=== PATIENT | female | born 1985 | race Two or more races ===

== ENCOUNTER 2023-08-30 15:30 | Inpatient (IN) | payer BC ==
[~2023-08-30] VITALS: Ht 165.1 cm; Wt 82.1 kg
[2023-08-30] MEDS ORDERED: PANTOPRAZOLE 40 MG VIAL IV ONE (16:30)
[2023-08-30] MEDS ORDERED: MORPHINE SULFATE INJ 2 MG/ML DISP.SYRIN IV ONE (16:30)
[2023-08-30] MEDS ORDERED: IV NS 0.9% 1,000 ML BAG IV ONE ×4 (16:30→22:00)
[2023-08-30] MEDS ORDERED: ONDANSETRON HCL/PF 4 MG/2 ML VIAL IVP ONE (16:30)
[2023-08-30] MEDS ORDERED: ONDANSETRON HCL/PF 4 MG/2 ML VIAL ONE (16:52)
[2023-08-30] MEDS ORDERED: MORPHINE SULFATE INJ 4 MG/ML DISP.SYRIN ONE (16:52)
[2023-08-30] MEDS ORDERED: PANTOPRAZOLE 40 MG VIAL ONE (16:54)
[2023-08-30 18:35] LABS: ALANINE AMINOTRANSFERASE < 6 U/L (12-78); ALBUMIN 2.2 g/dL (3.4-5.0); ALKALINE PHOSPHATASE 115 U/L (46-116); ASPARTATE AMINOTRANSFERASE 8 U/L (15-37); BILIRUBIN,DIRECT 0.1 mg/dL (0.0-0.2); BILIRUBIN,TOTAL 1.6 mg/dL (0.2-1.0); CHLORIDE 81 mmol/L (98-107); CREATININE 1.3 mg/dL (0.6-1.3); POTASSIUM 5.7 mmol/L (3.5-5.1); TOTAL PROTEIN, SERUM 7.9 g/dL (6.4-8.2); UREA NITROGEN, BLOOD 9 mg/dL (7-18)
[2023-08-30 18:45] LABS: PREGNANCY TEST URINE QUAL NEGATIVE (NEGATIVE)
[2023-08-30 18:47] LABS: BILIRUBIN,URINE 2+ (NEGATIVE); BLOOD, URINE 2+ Ery/uL (NEGATIVE); COLOR,URINE YELLOW (YELLOW); KETONES,URINE 3+ mg/dL (NEGATIVE); LEUKOCYTE ESTERASE ,URINE NEGATIVE (NEGATIVE); NITRITE, URINE NEGATIVE (NEGATIVE); PH,URINE 5.5 (5.0-8.0); PROTEIN,URINE 2+ mg/dl (NEGATIVE); UGLUCOSE 3+ mg/dL (NEGATIVE); UROBILINOGEN,URINE 0.2 EU/dL (0.2)
[2023-08-30 19:01] LABS: BASOPHILS # (AUTO) 0.1 K/uL (0.0-0.2); BASOPHILS % (AUTO) 0.5 % (0.0-2.0); EOSINOPHILS % (AUTO) 0.1 % (0.0-6.0); HEMATOCRIT 39 % (33-45); HEMOGLOBIN 13.8 g/dL (11.5-14.8); LYMPHOCYTES # (AUTO) 3.2 K/uL (0.8-4.8); LYMPHOCYTES % (AUTO) 23.5 % (20.0-44.0); MEAN CORPUSCULAR HEMOGLOBIN 34 PG (26.0-33.0); MEAN CORPUSCULAR HGB CONC 35 g/dl (31.0-36.0); MEAN CORPUSCULAR VOLUME 97 fL (82-100); MONOCYTES # (AUTO) 0.9 K/uL (0.1-1.30); MONOCYTES % (AUTO) 6.6 % (2.0-12.0); NEUTROPHILS # (AUTO) 9.3 K/uL (1.8-8.9); NEUTROPHILS % (AUTO) 69.3 % (43.0-81.0); PLATELET COUNT (AUTO) 421 K/uL (150-450); RED BLOOD CELL COUNT(AUTO) 4.04 MIL/uL (4.0-5.2); RED CELL DISTRIBUTION WIDTH 14.6 % (11.5-15.0); WHITE BLOOD COUNT (AUTO) 13.5 K/uL (4.3-11.0)
[2023-08-30 19:06] LABS: ADD URINE CULTURE NO; BACTERIA,URINE Few /HPF (None Seen); COARSE GRANULAR CASTS,URINE Moderate /LPF (None Seen); RBC,URINE 21-50 /HPF (0-2); SQUAMOUS EPITHELIAL CELL,UR Few /HPF (None Seen); WBC,URINE 0-2 /HPF (0-3)
[2023-08-30 19:07] LABS: APPEARANCE,URINE CLEAR (CLEAR)
[2023-08-30] MEDS ORDERED: HYDROMORPHONE 1 MG/1 ML DISP.SYRIN ONE (20:29)
[2023-08-30] MEDS ORDERED: HYDROMORPHONE 1 MG/1 ML DISP.SYRIN IV ONE (20:30)
[2023-08-30 21:29] LABS: CARBON DIOXIDE 7 mmol/L (21-32); SODIUM SERUM 110 mmol/L (136-145)
[2023-08-30 21:30] LABS: CALCIUM, SERUM 4.1 mg/dL (8.5-10.1); GLUCOSE 857 mg/dL (74-106)
[2023-08-30] MEDS ORDERED: INSULIN REGULAR, HUMAN 100 UNIT/ML 10 ML VIAL ONE (21:43)
[2023-08-30 21:44] LABS: LIPASE 2268 U/L (16-77)
[2023-08-30] MEDS ORDERED: INSULIN REGULAR, HUMAN 100 UNIT/ML 10 ML VIAL IV ONE (22:00)
[2023-08-30 22:51] LABS: CREATININE 1.2 mg/dL (0.6-1.3); POTASSIUM 5.5 mmol/L (3.5-5.1)
[2023-08-30 23:52] LABS: ABG BASE EXCESS -25.6 mmol/L; ABG OXYGEN SATURATION 83.6 % (92.0-98.5); ABG PCO2 19.3 mmHg (35.0-45.0); ABG PH 6.983 (7.350-7.450); ABG PO2 56.9 mmHg (75.0-100.0); COHb 0.2 % (0.5-1.5); MetHb 0.5 % (0.0-1.5); SITE, ABG Left Radial; VENT MODE, BG ROOM AIR
[2023-08-31] VITALS (27 sets, daily range): BP systolic 94–156; BP diastolic 82–125; TEMP 97.8–100.9; O2SAT 94–100
[2023-08-31] MEDS ORDERED: INSULIN REGULAR, HUMAN 100 UNIT in IV NS 0.9% 99 ML IV PRN ×2
[2023-08-31] MEDS ORDERED: PIPERACILLIN /TAZOBACTAM 3.375 G in IV D5W 50 ML IV ONE ×2 (00:30→06:30)
[2023-08-31] MEDS ORDERED: Sodium Bicarbonate 50 MEQ in IV NS 0.9% 1,000 ML IV PRN (01:00)
[2023-08-31] MEDS ORDERED: SODIUM BICARBONATE SYR 100 MEQ in IV D5/0.45 NACL 1,000 ML IV PRN (01:00)
[2023-08-31] MEDS: Calcium Gluconate 1GM/10ML 9.3 MEQ in IV D5W 250 ML IV SCH ×5 (01:00→05:34)
[2023-08-31] MEDS ORDERED: PIPERACI/TAZO 3.375GM/D5W 50ML PB IV ONE ×2 (01:09→03:30)
[2023-08-31] MEDS ORDERED: HYDROMORPHONE 1 MG/1 ML DISP.SYRIN ONE (01:15)
[2023-08-31] MEDS: HYDROMORPHONE 1 MG/1 ML DISP.SYRIN IV PRN ×4 (01:24→23:49)
[2023-08-31] MEDS ORDERED: SODIUM BICARBONATE SYR 50 MEQ/50 ML DISP.SYRIN ONE (01:41)
[2023-08-31] MEDS ORDERED: Calcium Gluconate 0.465 MEQ/ML VIAL IV ONE ×3 (01:59→05:00)
[2023-08-31] MEDS ORDERED: HYDROCODONE/APAP 5/325MG TABLET PO PRN (02:30)
[2023-08-31] MEDS ORDERED: ACETAMINOPHEN 325 MG TABLET PO PRN (02:30)
[2023-08-31] MEDS: PANTOPRAZOLE 40 MG VIAL IV SCH (02:30)
[2023-08-31] MEDS ORDERED: ONDANSETRON HCL/PF 4 MG/2 ML VIAL IV PRN (02:30)
[2023-08-31] MEDS: BLOOD SUGAR DIAGNOSTIC 1 EACH STRIP IN SCH ×21 (03:04→23:46)
[2023-08-31] MEDS: INSULIN REGULAR, HUMAN 100 UNIT in IV NS 0.9% 99 ML IV PRN ×4 (03:04→11:18)
[2023-08-31] MEDS ORDERED: METOPROLOL TARTRATE 25 MG TABLET PO SCH (04:30)
[2023-08-31 05:05] LABS: ABG BASE EXCESS -21.6 mmol/L; ABG OXYGEN SATURATION 97.4 % (92.0-98.5); ABG PCO2 17.6 mmHg (35.0-45.0); ABG PH 7.123 (7.350-7.450); ABG PO2 105.9 mmHg (75.0-100.0); ABG TOTAL HEMOGLOBIN 12.7 G/dL (12.0-16.0); AaDO2 159.1 mmHg; COHb 0.3 % (0.5-1.5); MetHb 0.3 % (0.0-1.5); O2Hb 96.8 % (94.0-97.0); SITE, ABG Right Radial; VENT MODE, BG Nasal Cannula
[2023-08-31] MEDS ORDERED: SODIUM BICARBONATE SYR 50 MEQ/50 ML DISP.SYRIN IV ONE (05:30)
[2023-08-31] MEDS ORDERED: METOPROLOL TARTRATE INJ 5 MG/5 ML AMPUL IVP ONE (05:30)
[2023-08-31] MEDS ORDERED: PIPERACILLIN /TAZOBACTAM 3.375 G in IV D5W 50 ML IV SCH (06:00)
[2023-08-31 08:20] LABS: CALCIUM, SERUM 6.8 mg/dL (8.5-10.1); CREATININE 2.3 mg/dL (0.6-1.3); POTASSIUM 3.3 mmol/L (3.5-5.1)
[2023-08-31 08:22] LABS: LACTIC ACID 1.4 mmol/L (0.4-2.0)
[2023-08-31 09:00] LABS: BASOPHILS # (AUTO) 0.1 K/uL (0.0-0.2); BASOPHILS % (AUTO) 0.5 % (0.0-2.0); EOSINOPHILS % (AUTO) 0.3 % (0.0-6.0); HEMATOCRIT 34 % (33-45); HEMOGLOBIN 10.9 g/dL (11.5-14.8); LYMPHOCYTES # (AUTO) 2.2 K/uL (0.8-4.8); LYMPHOCYTES % (AUTO) 20.8 % (20.0-44.0); MEAN CORPUSCULAR HEMOGLOBIN 31 PG (26.0-33.0); MEAN CORPUSCULAR HGB CONC 32 g/dl (31.0-36.0); MEAN CORPUSCULAR VOLUME 97 fL (82-100); MONOCYTES # (AUTO) 0.5 K/uL (0.1-1.30); MONOCYTES % (AUTO) 4.8 % (2.0-12.0); NEUTROPHILS # (AUTO) 7.6 K/uL (1.8-8.9); NEUTROPHILS % (AUTO) 73.6 % (43.0-81.0); PLATELET COUNT (AUTO) 371 K/uL (150-450); RED CELL DISTRIBUTION WIDTH 14.6 % (11.5-15.0)
[2023-08-31] MEDS ORDERED: ESCITALOPRAM OXALATE (10 MG) 10 MG TABLET PO SCH (09:00)
[2023-08-31] MEDS: METOPROLOL TARTRATE 50 MG TABLET PO SCH ×2 (09:00→17:04)
[2023-08-31 09:08] LABS: RED BLOOD CELL COUNT(AUTO) 3.54 MIL/uL (4.0-5.2)
[2023-08-31 09:10] LABS: WHITE BLOOD COUNT (AUTO) 11.2 K/uL (4.3-11.0)
[2023-08-31] MEDS: Sodium Bicarbonate 50 MEQ in IV NS 0.9% 1,000 ML IV SCH ×2 (09:14→14:01)
[2023-08-31 09:57] LABS: CALCIUM, SERUM 6.8 mg/dL (8.5-10.1); CREATININE 2.5 mg/dL (0.6-1.3); POTASSIUM 3.7 mmol/L (3.5-5.1)
[2023-08-31] MEDS ORDERED: POTASSIUM CL. PREMIX PERIPHER. 50 ML IV SCH (10:00)
[2023-08-31 10:03] LABS: THYROID STIMULATING HORMONE 1.113 uIU/mL (0.358-3.74)
[2023-08-31] MEDS ORDERED: ESCI10TA PO (10:35)
[2023-08-31] MEDS ORDERED: LEVO1TAB7 PO (10:35)
[2023-08-31 11:30] LABS: MAGNESIUM 2.3 mg/dL (1.8-2.4)
[2023-08-31 11:31] LABS: PHOSPHORUS 0.9 mg/dL (2.5-4.9)
[2023-08-31 11:50] LABS: CALCIUM, SERUM 6.4 mg/dL (8.5-10.1); CREATININE 2.5 mg/dL (0.6-1.3); POTASSIUM 3.8 mmol/L (3.5-5.1)
[2023-08-31] MEDS: PIPERACILLIN /TAZOBACTAM 3.375 G in IV D5W 100 ML IV SCH ×2 (13:08→21:33)
[2023-08-31] MEDS ORDERED: Calcium Gluconate 1GM/10ML 4.65 MEQ in IV NS 0.9% 100 ML IV ONE (14:30)
[2023-08-31 14:42] LABS: ABG BASE EXCESS -13.7 mmol/L; ABG OXYGEN SATURATION 97.1 % (92.0-98.5); ABG PCO2 24.2 mmHg (35.0-45.0); ABG PH 7.284 (7.350-7.450); ABG TOTAL HEMOGLOBIN 12.2 G/dL (12.0-16.0); AaDO2 127.4 mmHg; COHb 0.2 % (0.5-1.5); MetHb 0.1 % (0.0-1.5); O2Hb 96.8 % (94.0-97.0); SITE, ABG Right Radial
[2023-08-31] MEDS: GEMFIBROZIL 600 MG TABLET PO SCH (15:26)
[2023-08-31] MEDS ORDERED: IV NS 0.9% 500 ML IV PRN (17:30)
[2023-08-31] MEDS: IV NS 0.9% 1,000 ML IV PRN (19:19)
[2023-08-31 20:41] LABS: CALCIUM, SERUM 6.1 mg/dL (8.5-10.1); CREATININE 3.6 mg/dL (0.6-1.3); POTASSIUM 3.5 mmol/L (3.5-5.1)
[2023-09-01] VITALS (24 sets, daily range): BP systolic 122–164; BP diastolic 81–140; TEMP 97–99.5; O2SAT 95–100
[2023-09-01] MEDS: BLOOD SUGAR DIAGNOSTIC 1 EACH STRIP IN SCH ×24 (00:49→23:42)
[2023-09-01 01:08] LABS: CREATININE 3.9 mg/dL (0.6-1.3); POTASSIUM 3.5 mmol/L (3.5-5.1)
[2023-09-01 01:11] LABS: CALCIUM, SERUM 5.8 mg/dL (8.5-10.1)
[2023-09-01] MEDS: IV NS 0.9% 1,000 ML IV PRN ×2 (01:28→08:48)
[2023-09-01] MEDS ORDERED: LORAZEPAM INJ 2 MG/ML VIAL IV PRN ×2 (01:30→13:30)
[2023-09-01] MEDS ORDERED: OLANZAPINE 10 MG VIAL IM PRN ×2 (01:30→09:00)
[2023-09-01] MEDS: INSULIN REGULAR, HUMAN 100 UNIT in IV NS 0.9% 99 ML IV PRN ×4 (01:33→15:33)
[2023-09-01] MEDS ORDERED: Calcium Gluconate 0.465 MEQ/ML VIAL IV ONE (02:00)
[2023-09-01] MEDS: GEMFIBROZIL 600 MG TABLET PO SCH ×2 (03:00→15:00)
[2023-09-01] MEDS: PIPERACILLIN /TAZOBACTAM 3.375 G in IV D5W 100 ML IV SCH ×2 (04:19→21:15)
[2023-09-01 06:10] LABS: ABG BASE EXCESS -13.1 mmol/L; ABG OXYGEN SATURATION 96.5 % (92.0-98.5); ABG PCO2 28.8 mmHg (35.0-45.0); ABG PH 7.258 (7.350-7.450); ABG PO2 87.3 mmHg (75.0-100.0); ABG TOTAL HEMOGLOBIN 12.6 G/dL (12.0-16.0); AaDO2 164.8 mmHg; COHb 0.2 % (0.5-1.5); MetHb 0.1 % (0.0-1.5); O2Hb 96.2 % (94.0-97.0); SITE, ABG Left Radial; VENT MODE, BG NASAL CANNULA
[2023-09-01 08:01] LABS: ABG BASE EXCESS -14.2 mmol/L; ABG OXYGEN SATURATION 88.9 % (92.0-98.5); ABG PCO2 28.6 mmHg (35.0-45.0); ABG PH 7.235 (7.350-7.450); ABG PO2 58.2 mmHg (75.0-100.0); ABG TOTAL HEMOGLOBIN 11.2 G/dL (12.0-16.0); COHb 0.3 % (0.5-1.5); MetHb 0.2 % (0.0-1.5); O2Hb 88.5 % (94.0-97.0); SITE, ABG Other; VENT MODE, BG 4L NC
[2023-09-01 08:14] LABS: ALANINE AMINOTRANSFERASE 22 U/L (12-78); ALBUMIN 1.7 g/dL (3.4-5.0); ALKALINE PHOSPHATASE 84 U/L (46-116); BILIRUBIN,TOTAL 0.4 mg/dL (0.2-1.0); CALCIUM, SERUM 6.2 mg/dL (8.5-10.1); CARBON DIOXIDE 11 mmol/L (21-32); CHLORIDE 103 mmol/L (98-107); CREATININE 4.8 mg/dL (0.6-1.3); GLUCOSE 273 mg/dL (74-106); POTASSIUM 3.4 mmol/L (3.5-5.1); SODIUM SERUM 134 mmol/L (136-145); TOTAL PROTEIN, SERUM 6.4 g/dL (6.4-8.2); UREA NITROGEN, BLOOD 25 mg/dL (7-18)
[2023-09-01 08:22] LABS: BASOPHILS # (AUTO) 0.4 K/uL (0.0-0.2); BASOPHILS % (AUTO) 2.9 % (0.0-2.0); EOSINOPHILS % (AUTO) 0.3 % (0.0-6.0); HEMATOCRIT 31 % (33-45); HEMOGLOBIN 11.3 g/dL (11.5-14.8); LYMPHOCYTES # (AUTO) 1.9 K/uL (0.8-4.8); LYMPHOCYTES % (AUTO) 12.9 % (20.0-44.0); MEAN CORPUSCULAR HEMOGLOBIN 34 PG (26.0-33.0); MEAN CORPUSCULAR HGB CONC 37 g/dl (31.0-36.0); MEAN CORPUSCULAR VOLUME 91 fL (82-100); MONOCYTES # (AUTO) 1.2 K/uL (0.1-1.30); MONOCYTES % (AUTO) 8.1 % (2.0-12.0); NEUTROPHILS % (AUTO) 75.8 % (43.0-81.0); PLATELET COUNT (AUTO) 393 K/uL (150-450); RED BLOOD CELL COUNT(AUTO) 3.36 MIL/uL (4.0-5.2); RED CELL DISTRIBUTION WIDTH 14.7 % (11.5-15.0); WHITE BLOOD COUNT (AUTO) 14.5 K/uL (4.3-11.0)
[2023-09-01 08:39] LABS: ASPARTATE AMINOTRANSFERASE 35 U/L (15-37)
[2023-09-01 08:41] LABS: LIPASE > 375 U/L (16-77)
[2023-09-01] MEDS: PANTOPRAZOLE 40 MG VIAL IV SCH (08:55)
[2023-09-01] MEDS ORDERED: POTASSIUM CHLORIDE 20 MEQ TAB.PRT.SR PO ONE (09:00)
[2023-09-01] MEDS: ESCITALOPRAM OXALATE (10 MG) 10 MG TABLET PO SCH (09:00)
[2023-09-01] MEDS: METOPROLOL TARTRATE 50 MG TABLET PO SCH ×2 (09:00→17:00)
[2023-09-01] MEDS ORDERED: POTASSIUM CHLORIDE 10 MEQ/50 ML PREMIXED IVPB FOR PERIPHERAL LINE IV ONE (09:30)
[2023-09-01] MEDS ORDERED: METOPROLOL TARTRATE INJ 5 MG/5 ML AMPUL IVP PRN (09:30)
[2023-09-01] MEDS ORDERED: Calcium Gluconate 1GM/10ML 9.3 MEQ in IV NS 0.9% 100 ML IV ONE (09:30)
[2023-09-01 10:09] LABS: BAND % (MANUAL) 5 % (0.0-5.0); LYMPHOCYTES % (MANUAL) 42 % (16-48); MONOCYTES % (MANUAL) 4 % (0-11.0); MYELOCYTES % 1 % (0-0); NEUTROPHILS % (MANUAL) 48 (42-76)
[2023-09-01 10:10] LABS: ANISOCYTOSIS 1+; PLATELET ESTIMATE ADEQUATE
[2023-09-01] MEDS: Potassium Chloride 10 MEQ in IV D5/0.45 NACL 1,000 ML IV SCH ×3 (10:48→20:30)
[2023-09-01] MEDS: POTASSIUM CL. PREMIX PERIPHER. 50 ML IV SCH ×2 (12:03→13:03)
[2023-09-01 12:53] LABS: CREATININE 5.2 mg/dL (0.6-1.3); POTASSIUM 3.6 mmol/L (3.5-5.1)
[2023-09-01] MEDS ORDERED: FUROSEMIDE 100 MG/10 ML VIAL IV ONE (13:00)
[2023-09-01 15:05] LABS: CALCIUM, SERUM 6.3 mg/dL (8.5-10.1); CREATININE 5.5 mg/dL (0.6-1.3); POTASSIUM 3.5 mmol/L (3.5-5.1)
[2023-09-01] MEDS ORDERED: K PHOS NEUTRAL 250 MG TABLET PO ONE (18:30)
[2023-09-01 19:06] LABS: CALCIUM, SERUM 6.4 mg/dL (8.5-10.1); CREATININE 5.7 mg/dL (0.6-1.3); POTASSIUM 3.4 mmol/L (3.5-5.1)
[2023-09-01 19:17] LABS: APPEARANCE,URINE SLIGHTLY CLOUDY (CLEAR); BILIRUBIN,URINE NEGATIVE (NEGATIVE); BLOOD, URINE 3+ Ery/uL (NEGATIVE); COLOR,URINE YELLOW (YELLOW); KETONES,URINE NEGATIVE (NEGATIVE); LEUKOCYTE ESTERASE ,URINE 1+ (NEGATIVE); NITRITE, URINE NEGATIVE (NEGATIVE); PH,URINE 5.5 (5.0-8.0); PROTEIN,URINE 2+ mg/dl (NEGATIVE); UGLUCOSE 1+ mg/dL (NEGATIVE); UROBILINOGEN,URINE 0.2 EU/dL (0.2)
[2023-09-01] MEDS ORDERED: POTASSIUM PHOSPHATE MM 15 MMOL in IV NS 0.9% 250 ML IV SCH (19:30)
[2023-09-01] MEDS: POTASSIUM PHOSPHATE MM 7.5 MMOL in IV NS 0.9% 100 ML IV SCH ×2 (19:43→22:53)
[2023-09-01 19:48] LABS: CREATININE, URINE 47.2 MG/DL (30.0-125.0); URINE TOTAL PROTEIN 213.6 mg/dL (0-11.9)
[2023-09-01 19:56] LABS: AMPHETAMINE, URINE NEGATIVE (NEGATIVE); BARBITURATE, URINE NEGATIVE (NEGATIVE); BENZODIAZEPINE, URINE NEGATIVE (NEGATIVE); CANNABINOID, URINE NEGATIVE (NEGATIVE); COCCAINE, URINE NEGATIVE (NEGATIVE); PHENCYCLIDINE SCREEN,URINE NEGATIVE (NEGATIVE)
[2023-09-01 19:58] LABS: OPIATE, URINE POSITIVE (NEGATIVE)
[2023-09-01 20:26] LABS: ADD URINE CULTURE YES; BACTERIA,URINE 3+ /HPF (None Seen); COARSE GRANULAR CASTS,URINE Few /LPF (None Seen); RBC,URINE 51-80 /HPF (0-2); URINE AMORPHOUS URATE Many /HPF (None Seen)
[2023-09-01 20:28] LABS: EOSINOPHIL,URINE None Seen
[2023-09-01 22:56] LABS: CALCIUM, SERUM 6.2 mg/dL (8.5-10.1); POTASSIUM 3.3 mmol/L (3.5-5.1)
[2023-09-01] MEDS: HYDROMORPHONE 1 MG/1 ML DISP.SYRIN IV PRN (23:47)
[2023-09-02] VITALS (26 sets, daily range): BP systolic 127–167; BP diastolic 66–114; TEMP 98.2–98.9; O2SAT 97–100
[2023-09-02] MEDS ORDERED: IPRATROPIUM NEB FS 0.5 MG/2.5 ML AMPUL.NEB NEB PRN
[2023-09-02] MEDS ORDERED: LEVALBUTEROL HCL NEB 1.25 MG/0.5 ML VIAL.NEB NEB PRN ×2
[2023-09-02] MEDS ORDERED: FUROSEMIDE 40 MG/4 ML VIAL IV ONE (00:30)
[2023-09-02] MEDS: BLOOD SUGAR DIAGNOSTIC 1 EACH STRIP IN SCH ×24 (00:38→23:36)
[2023-09-02] MEDS: POTASSIUM PHOSPHATE MM 7.5 MMOL in IV NS 0.9% 100 ML IV SCH ×2 (01:43→04:49)
[2023-09-02] MEDS: Potassium Chloride 10 MEQ in IV D5/0.45 NACL 1,000 ML IV PRN ×2 (02:15→12:45)
[2023-09-02] MEDS: GEMFIBROZIL 600 MG TABLET PO SCH ×2 (03:00→15:14)
[2023-09-02 05:15] LABS: ALBUMIN 1.6 g/dL (3.4-5.0); BILIRUBIN,TOTAL 0.3 mg/dL (0.2-1.0); CALCIUM, SERUM 6.2 mg/dL (8.5-10.1); CREATININE 6.3 mg/dL (0.6-1.3); MAGNESIUM 2.4 mg/dL (1.8-2.4); PHOSPHORUS 3.4 mg/dL (2.5-4.9); POTASSIUM 3.6 mmol/L (3.5-5.1)
[2023-09-02] MEDS ORDERED: Calcium Gluconate 0.465 MEQ/ML VIAL IV ONE (06:29)
[2023-09-02] MEDS ORDERED: Calcium Gluconate 1GM/10ML 9.3 MEQ in IV NS 0.9% 100 ML IV ONE (06:30)
[2023-09-02] MEDS: ESCITALOPRAM OXALATE (10 MG) 10 MG TABLET PO SCH (08:31)
[2023-09-02] MEDS: PANTOPRAZOLE 40 MG VIAL IV SCH (08:31)
[2023-09-02] MEDS: METOPROLOL TARTRATE 50 MG TABLET PO SCH ×2 (08:32→17:25)
[2023-09-02] MEDS: HYDROMORPHONE 1 MG/1 ML DISP.SYRIN IV PRN ×3 (08:33→20:43)
[2023-09-02] MEDS: PIPERACILLIN /TAZOBACTAM 3.375 G in IV D5W 100 ML IV SCH (08:37)
[2023-09-02 09:13] LABS: CALCIUM, SERUM 6.4 mg/dL (8.5-10.1); CREATININE 6.7 mg/dL (0.6-1.3); POTASSIUM 3.5 mmol/L (3.5-5.1)
[2023-09-02 09:52] LABS: HEMATOCRIT 28 % (33-45); MEAN CORPUSCULAR VOLUME 92 fL (82-100); PLATELET COUNT (AUTO) 339 K/uL (150-450); RED BLOOD CELL COUNT(AUTO) 2.99 MIL/uL (4.0-5.2); RED CELL DISTRIBUTION WIDTH 14.7 % (11.5-15.0)
[2023-09-02 11:46] LABS: LYMPHOCYTES % (AUTO) 11.6 % (20.0-44.0); NEUTROPHILS % (AUTO) 83.2 % (43.0-81.0)
[2023-09-02 11:47] LABS: BASOPHILS % (AUTO) 0.4 % (0.0-2.0); EOSINOPHILS % (AUTO) 0.5 % (0.0-6.0); LYMPHOCYTES # (AUTO) 0.9 K/uL (0.8-4.8); MONOCYTES # (AUTO) 0.3 K/uL (0.1-1.30); MONOCYTES % (AUTO) 4.3 % (2.0-12.0); NEUTROPHILS # (AUTO) 6.4 K/uL (1.8-8.9)
[2023-09-02 11:48] LABS: MEAN CORPUSCULAR HEMOGLOBIN 31 PG (26.0-33.0); MEAN CORPUSCULAR HGB CONC 34 g/dl (31.0-36.0)
[2023-09-02 11:56] LABS: HEMOGLOBIN 8.6 g/dL (11.5-14.8)
[2023-09-02] MEDS ORDERED: ZOSYN IVPB 2.25 G in IV D5W 50ml IV SCH (12:00)
[2023-09-02 13:15] LABS: BAND % (MANUAL) 1 % (0.0-5.0); LYMPHOCYTES % (MANUAL) 10 % (16-48); MONOCYTES % (MANUAL) 4 % (0-11.0); NEUTROPHILS % (MANUAL) 85 (42-76); PLATELET ESTIMATE ADEQUATE
[2023-09-02 13:16] LABS: ANISOCYTOSIS 1+
[2023-09-02 13:19] LABS: CALCIUM, SERUM 6.5 mg/dL (8.5-10.1); CREATININE 7.1 mg/dL (0.6-1.3); POTASSIUM 4.1 mmol/L (3.5-5.1)
[2023-09-02] MEDS: INSULIN REGULAR, HUMAN 100 UNIT in IV NS 0.9% 99 ML IV PRN ×2 (13:20)
[2023-09-02] MEDS: ZOSYN IVPB 2.25 G in IV D5W 50ml IV SCH (17:24)
[2023-09-02 17:49] LABS: CALCIUM, SERUM 6.7 mg/dL (8.5-10.1); CREATININE 7.4 mg/dL (0.6-1.3); POTASSIUM 3.8 mmol/L (3.5-5.1)
[2023-09-02 21:30] LABS: CALCIUM, SERUM 6.5 mg/dL (8.5-10.1)
[2023-09-02 21:41] LABS: CREATININE 7.6 mg/dL (0.6-1.3)
[2023-09-03] VITALS (26 sets, daily range): BP systolic 125–157; BP diastolic 82–102; TEMP 98.1–98.9; O2SAT 92–100
[2023-09-03] MEDS: ZOSYN IVPB 2.25 G in IV D5W 50ml IV SCH ×7 (00:11→23:34)
[2023-09-03] MEDS: BLOOD SUGAR DIAGNOSTIC 1 EACH STRIP IN SCH ×9 (00:46→21:07)
[2023-09-03] MEDS: GEMFIBROZIL 600 MG TABLET PO SCH ×2 (03:00→16:44)
[2023-09-03 04:36] LABS: PHOSPHORUS 3.6 mg/dL (2.5-4.9)
[2023-09-03] MEDS: Potassium Chloride 10 MEQ in IV D5/0.45 NACL 1,000 ML IV PRN ×2 (04:37→18:00)
[2023-09-03 04:44] LABS: CALCIUM, SERUM 7.3 mg/dL (8.5-10.1); CREATININE 5.6 mg/dL (0.6-1.3); POTASSIUM 3.1 mmol/L (3.5-5.1)
[2023-09-03] MEDS: HYDROMORPHONE 1 MG/1 ML DISP.SYRIN IV PRN ×5 (04:58→22:28)
[2023-09-03 06:53] LABS: CREATININE 5.9 mg/dL (0.6-1.3)
[2023-09-03 07:06] LABS: PTH, INTACT 222 pg/mL (15-65)
[2023-09-03] MEDS: ESCITALOPRAM OXALATE (10 MG) 10 MG TABLET PO SCH (09:14)
[2023-09-03] MEDS: METOPROLOL TARTRATE 50 MG TABLET PO SCH ×2 (09:15→16:45)
[2023-09-03] MEDS: PANTOPRAZOLE 40 MG TABLET.DR PO SCH (09:15)
[2023-09-03] MEDS ORDERED: POTASSIUM CHLORIDE 20 MEQ TAB.PRT.SR PO ONE (09:30)
[2023-09-03 11:06] LABS: *SPE A/G RATIO 0.6 (0.7-1.7); *SPE ALPHA-1-GLOBULIN 0.5 g/dL (0.0-0.4); *SPE ALPHA-2-GLOBULIN 1.2 g/dL (0.4-1.0); *SPE GLOBULIN, TOTAL 3.2 g/dL (2.2-3.9); *SPE M-SPIKE Not Observed g/dL (Not Observed); *SPE PROTEIN TOTAL 5.2 g/dL (6.0-8.5); *SPEGAMMA GLOBULIN 0.6 g/dL (0.4-1.8)
[2023-09-03] MEDS ORDERED: BLOOD SUGAR DIAGNOSTIC 1 EACH STRIP IN SCH (12:00)
[2023-09-03] MEDS: INSULIN REGULAR, HUMAN 100 UNIT in IV NS 0.9% 99 ML IV PRN ×2 (18:00)
[2023-09-03] MEDS: HEPARIN SODIUM, PORCINE 5000 UNITS/1 ML VIAL SQ SCH (21:06)
[2023-09-04] VITALS (29 sets, daily range): BP systolic 105–159; BP diastolic 77–97; TEMP 98.1–99.5; O2SAT 93–98
[2023-09-04] MEDS: BLOOD SUGAR DIAGNOSTIC 1 EACH STRIP IN SCH ×3 (01:03→09:00)
[2023-09-04] MEDS: HYDROMORPHONE 1 MG/1 ML DISP.SYRIN IV PRN (01:50)
[2023-09-04] MEDS: GEMFIBROZIL 600 MG TABLET PO SCH ×2 (03:27→15:21)
[2023-09-04 04:00] LABS: BASOPHILS # (AUTO) 0.1 K/uL (0.0-0.2); BASOPHILS % (AUTO) 1.1 % (0.0-2.0); EOSINOPHILS # (AUTO) 0.1 K/uL (0.0-0.7); EOSINOPHILS % (AUTO) 1.9 % (0.0-6.0); HEMATOCRIT 23 % (33-45); HEMOGLOBIN 8.1 g/dL (11.5-14.8); LYMPHOCYTES % (AUTO) 16.8 % (20.0-44.0); MEAN CORPUSCULAR HEMOGLOBIN 31 PG (26.0-33.0); MEAN CORPUSCULAR HGB CONC 35 g/dl (31.0-36.0); MEAN CORPUSCULAR VOLUME 90 fL (82-100); MONOCYTES # (AUTO) 0.7 K/uL (0.1-1.30); NEUTROPHILS # (AUTO) 4.2 K/uL (1.8-8.9); NEUTROPHILS % (AUTO) 68.2 % (43.0-81.0); PLATELET COUNT (AUTO) 222 K/uL (150-450); RED BLOOD CELL COUNT(AUTO) 2.59 MIL/uL (4.0-5.2); RED CELL DISTRIBUTION WIDTH 14.4 % (11.5-15.0); WHITE BLOOD COUNT (AUTO) 6.2 K/uL (4.3-11.0)
[2023-09-04 04:12] LABS: BILIRUBIN,TOTAL 0.5 mg/dL (0.2-1.0); CALCIUM, SERUM 7.4 mg/dL (8.5-10.1); MAGNESIUM 1.8 mg/dL (1.8-2.4); PHOSPHORUS 3.3 mg/dL (2.5-4.9); POTASSIUM 3.2 mmol/L (3.5-5.1); TOTAL PROTEIN, SERUM 5.4 g/dL (6.4-8.2)
[2023-09-04 04:17] LABS: ALBUMIN 1.3 g/dL (3.4-5.0)
[2023-09-04] MEDS: ZOSYN IVPB 2.25 G in IV D5W 50ml IV SCH ×2 (05:00→05:03)
[2023-09-04] MEDS ORDERED: Potassium Chloride 10 MEQ in IV D5/0.45 NACL 1,000 ML IV SCH (07:00)
[2023-09-04] MEDS ORDERED: ALBUTEROL FS 2.5 MG/3 ML VIAL.NEB NEB PRN (08:30)
[2023-09-04] MEDS: PANTOPRAZOLE 40 MG TABLET.DR PO SCH (08:58)
[2023-09-04] MEDS: HEPARIN SODIUM, PORCINE 5000 UNITS/1 ML VIAL SQ SCH ×2 (08:58→21:00)
[2023-09-04] MEDS: METOPROLOL TARTRATE 50 MG TABLET PO SCH ×2 (08:58→17:13)
[2023-09-04] MEDS: ESCITALOPRAM OXALATE (10 MG) 10 MG TABLET PO SCH (08:58)
[2023-09-04] MEDS ORDERED: INSULIN GLARGINE, 100 UNIT/ML CARTRIDGE SQ ONE (10:30)
[2023-09-04] MEDS ORDERED: *INSULIN REGULAR(HUMULIN R)HUM 100 UNIT/ML VIAL SQ PRN (10:30)
[2023-09-04] MEDS ORDERED: POTASSIUM CHLORIDE 20 MEQ TAB.PRT.SR PO ONE (10:30)
[2023-09-04] MEDS ORDERED: DEXTROSE 50%-WATER 50 ML DISP.SYRIN IV PRN (10:30)
[2023-09-04 12:15] LABS: ANISOCYTOSIS 1+; BAND % (MANUAL) 4 % (0.0-5.0); EOSINOPHILS % (MANUAL) 2 % (0-4); LYMPHOCYTES % (MANUAL) 15 % (16-48); MONOCYTES % (MANUAL) 9 % (0-11.0); MYELOCYTES % 1 % (0-0); NEUTROPHILS % (MANUAL) 69 (42-76); PLATELET ESTIMATE ADEQUATE
[2023-09-04 13:07] LABS: HEPATITIS B SURFACE AB Reactive (.)
[2023-09-04] MEDS: BLOOD SUGAR DIAGNOSTIC 1 EACH STRIP VI SCH ×3 (13:23→21:26)
[2023-09-04] MEDS: INSULIN REGULAR, HUMAN 100 UNIT/ML 3 ML VIAL SQ PRN (18:59)
[2023-09-05 00:29] VITALS: BP 150/81; TEMP 99.6; O2SAT 95
[2023-09-05] MEDS: GEMFIBROZIL 600 MG TABLET PO SCH ×2 (02:43→15:00)
[2023-09-05 04:44] VITALS: BP 138/81; TEMP 98.1; O2SAT 96
[2023-09-05 06:54] LABS: BASOPHILS % (AUTO) 0.1 % (0.0-2.0); EOSINOPHILS # (AUTO) 0.2 K/uL (0.0-0.7); EOSINOPHILS % (AUTO) 1.5 % (0.0-6.0); HEMATOCRIT 26 % (33-45); HEMOGLOBIN 8.7 g/dL (11.5-14.8); LYMPHOCYTES # (AUTO) 1.2 K/uL (0.8-4.8); LYMPHOCYTES % (AUTO) 12.1 % (20.0-44.0); MEAN CORPUSCULAR HEMOGLOBIN 31 PG (26.0-33.0); MEAN CORPUSCULAR HGB CONC 33 g/dl (31.0-36.0); MEAN CORPUSCULAR VOLUME 91 fL (82-100); MONOCYTES % (AUTO) 10.1 % (2.0-12.0); NEUTROPHILS # (AUTO) 7.8 K/uL (1.8-8.9); NEUTROPHILS % (AUTO) 76.2 % (43.0-81.0); PLATELET COUNT (AUTO) 232 K/uL (150-450); RED BLOOD CELL COUNT(AUTO) 2.86 MIL/uL (4.0-5.2); RED CELL DISTRIBUTION WIDTH 14.3 % (11.5-15.0); WHITE BLOOD COUNT (AUTO) 10.3 K/uL (4.3-11.0)
[2023-09-05 07:29] LABS: BILIRUBIN,TOTAL 0.4 mg/dL (0.2-1.0); CALCIUM, SERUM 8.2 mg/dL (8.5-10.1); CREATININE 5.9 mg/dL (0.6-1.3); POTASSIUM 3.5 mmol/L (3.5-5.1); TOTAL PROTEIN, SERUM 5.7 g/dL (6.4-8.2)
[2023-09-05 07:46] LABS: ALBUMIN 1.3 g/dL (3.4-5.0)
[2023-09-05 08:00] VITALS: BP 136/67; TEMP 98.3; O2SAT 96
[2023-09-05 08:07] LABS: HBSAG SCREEN Negative (Negative); HEPATITIS A AB, IgM Negative (Negative); HEPATITIS B CORE AB, IgM Negative (Negative)
[2023-09-05] MEDS: BLOOD SUGAR DIAGNOSTIC 1 EACH STRIP VI SCH ×3 (08:17→17:30)
[2023-09-05] MEDS: INSULIN REGULAR, HUMAN 100 UNIT/ML 3 ML VIAL SQ PRN ×2 (08:31→12:16)
[2023-09-05] MEDS: HEPARIN SODIUM, PORCINE 5000 UNITS/1 ML VIAL SQ SCH (09:00)
[2023-09-05] MEDS ORDERED: INSULIN GLARGINE, 100 UNIT/ML CARTRIDGE SQ SCH (09:00)
[2023-09-05] MEDS: ESCITALOPRAM OXALATE (10 MG) 10 MG TABLET PO SCH (09:22)
[2023-09-05] MEDS: PANTOPRAZOLE 40 MG TABLET.DR PO SCH (09:22)
[2023-09-05] MEDS: METOPROLOL TARTRATE 50 MG TABLET PO SCH ×2 (09:22→17:00)
[2023-09-05 12:00] VITALS: BP 149/90; TEMP 98.1; O2SAT 96
[2023-09-05 12:25] LABS: ANISOCYTOSIS 1+; BAND % (MANUAL) 4 % (0.0-5.0); HYPOCHROMASIA 1+; LYMPHOCYTES % (MANUAL) 16 % (16-48); MONOCYTES % (MANUAL) 11 % (0-11.0); NEUTROPHILS % (MANUAL) 69 (42-76); PLATELET ESTIMATE ADEQUATE
[2023-09-05 16:00] VITALS: BP 153/90; TEMP 98; O2SAT 96
[2023-09-05] MEDS ORDERED: Insulin Glargine,Hum SQ (16:44)
[2023-09-05] MEDS ORDERED: GEMF600T90 PO (16:44)
[2023-09-05] MEDS ORDERED: METO50TA16 PO (16:44)
[2023-09-05 20:00] VITALS: BP 149/89; TEMP 98.7; O2SAT 98
== END 2023-09-06 | disposition short-term general hospital (02) | DRG 438 ==
LOC: ER 15:47 → ICU 08-31 00:32 → TELE1 09-04 19:58
PROVIDERS: ADMIT Internal Medicine; ATTEND Internal Medicine
PROC: 02HV33Z Insertion of Infusion Device into Superior Vena Cava, Percutaneous Approach (ICD-10-PCS; principal; 2023-08-31)
PROC: B548ZZA Ultrasonography of Superior Vena Cava, Guidance (ICD-10-PCS; 2023-08-31)
PROC: 5A1D70Z Performance of Urinary Filtration, Intermittent, Less than 6 Hours Per Day (ICD-10-PCS; 2023-09-02)
PROC: 02HV33Z Insertion of Infusion Device into Superior Vena Cava, Percutaneous Approach (ICD-10-PCS; 2023-09-02)
PROC: B548ZZA Ultrasonography of Superior Vena Cava, Guidance (ICD-10-PCS; 2023-09-02)
PROC: 02H633Z Insertion of Infusion Device into Right Atrium, Percutaneous Approach (ICD-10-PCS; 2023-09-02)
PROC: B548ZZA Ultrasonography of Superior Vena Cava, Guidance (ICD-10-PCS; 2023-09-02)
DX: K85.90 Acute pancreatitis without necrosis or infection, unspecified (principal); E11.10 Type 2 diabetes mellitus with ketoacidosis without coma; G92.8 Other toxic encephalopathy; N17.0 Acute kidney failure with tubular necrosis; E86.0 Dehydration; K76.0 Fatty (change of) liver, not elsewhere classified; D64.9 Anemia, unspecified; E66.9 Obesity, unspecified; E83.51 Hypocalcemia; E87.5 Hyperkalemia; E88.09 Other disorders of plasma-protein metabolism, not elsewhere classified; Z79.4 Long term (current) use of insulin; E83.39 Other disorders of phosphorus metabolism; F32.9 Major depressive disorder, single episode, unspecified; E78.1 Pure hyperglyceridemia; M89.8X9 Other specified disorders of bone, unspecified site; Z79.899 Other long term (current) drug therapy; Z68.30 Body mass index [BMI] 30.0-30.9, adult; Z20.822 Contact with and (suspected) exposure to COVID-19; R78.89 Finding of other specified substances, not normally found in blood
CPT/HCPCS: 36415; 36600; 71045-TC; 76700-TC; 80048-TC; 80053-TC; 80061-TC; 80076-TC; 81001; 82010-TC; 82550-TC; 82570-TC; 82803-TC; 82962-TC; 83540-TC; 83605-TC; 83690-TC; 83735-TC; 83970; 84100-TC; 84155; 84165; 84300-TC; 84443-TC; 84478-TC; 84703-TC; 85025-TC; 86706; 87081-TC; 87086-TC; 87340; 90935-TC; 94799-TC; 97110-TC; 97116-TC; 97530-TC; A4223; A6403; C9113; C9803; G0378; J0610; J1170; J1644; J1815; J1940; J2060; J2270; J2405; J2543; J3480; J3490; J7030; J7050; J7060